=== PATIENT | female | born 1980 | race African-American/Black ===

== ENCOUNTER 2023-12-13 09:03 | Emergency (ER) | payer BC ==
[~2023-12-13] VITALS: Ht 180.3 cm; Wt 99.6 kg
[2023-12-13 09:35] VITALS: BP 109/75; PULSE 81; RESP 18; TEMP 97.9; O2SAT 95
[2023-12-13] MEDS ORDERED: IBUP-1456 PO (10:21)
[2023-12-13] MEDS: ACETAMINOPHEN 500 MG TAB PO ONE (10:25)
== END 2023-12-13 10:28 | disposition home or self-care (01) ==
LOC: ER 09:03
DX: S52.124A Nondisplaced fracture of head of right radius, initial encounter for closed fracture (principal); Z79.1 Long term (current) use of non-steroidal anti-inflammatories (NSAID); V00.121A Fall from non-in-line roller-skates, initial encounter; Y93.89 Activity, other specified; Y92.89 Other specified places as the place of occurrence of the external cause; Y99.8 Other external cause status
CPT/HCPCS: 29105; 73080